=== PATIENT | male | born 2000 | race Hispanic/Latino ===

== ENCOUNTER 2021-02-21 16:54 | Emergency (ER) | payer OTHER, SELFPAY ==
[2021-02-21] MEDS ORDERED: Lidocaine 1% PF 5 ML VIAL ONE (17:01)
[2021-02-21] MEDS ORDERED: Acetaminophen 650 MG Suppository ONE (17:01)
[2021-02-21] MEDS ORDERED: Boostrix 0.5 ML (Tdap) VIAL ONE (17:02)
[2021-02-21] MEDS ORDERED: Bacitracin 1 PK ONE (17:20)
== END 2021-02-21 17:26 | disposition home or self-care (01) ==
LOC: BURERS 16:54
DX: S51.812A Laceration without foreign body of left forearm, initial encounter (principal); Z23 Encounter for immunization; W26.8XXA Contact with other sharp object(s), not elsewhere classified, initial encounter; Y92.89 Other specified places as the place of occurrence of the external cause; Y99.0 Civilian activity done for income or pay
CPT/HCPCS: 12001; 90471; 90715